=== PATIENT | male | born 1975 | race Caucasian/White ===

== ENCOUNTER 2021-05-24 18:23 | Emergency (ER) | payer BC ==
[2021-05-24] MEDS ORDERED: Boostrix 0.5 ML (Tdap) VIAL ONE (18:36)
[2021-05-24] MEDS ORDERED: Lidocaine 1% w/Epinephrine 1:100K 20 ML VIAL ONE ×2 (18:51→18:52)
[2021-05-24] MEDS ORDERED: Bacitracin 1 PK ONE (22:08)
[2021-05-24] MEDS ORDERED: Cephalexin 250 MG CAP ONE (22:48)
== END 2021-05-24 22:56 | disposition home or self-care (01) ==
LOC: NAV ERS 18:23
DX: S61.412A Laceration without foreign body of left hand, initial encounter (principal); W26.8XXA Contact with other sharp object(s), not elsewhere classified, initial encounter
CPT/HCPCS: 12002; 90471; 90715